=== PATIENT | female | born 1945 | race Caucasian/White ===

== ENCOUNTER 2021-10-31 09:15 | Outpatient (RCR) | payer MEDICARE, OTHER, SELFPAY | END 2021-11-01 07:50 | disposition home or self-care (01) | PROVIDERS: PCP Family Medicine; Visit Provider Family Medicine | DX: M54.2 Cervicalgia (principal); R51.9 Headache, unspecified; M54.9 Dorsalgia, unspecified; Z51.89 Encounter for other specified aftercare | CPT/HCPCS: 97110; 97112; 97140; 97161 ==

== ENCOUNTER 2022-04-07 13:28 | Emergency (ER) | payer MEDICARE, OTHER, SELFPAY ==
[2022-04-07 13:48] VITALS: BP 97/63; PULSE 120; TEMP 36.6; O2SAT 98; BMI 22.7
--- NOTE | 2022-04-07 14:13 | ED.FALL ---
HPI - Fall General Time Seen by Provider: 14:13 Date Seen: 04/07/22 Chief Complaint: Fall/Minor Trauma Stated Complaint: Fell today, hurt L leg Time Seen by Provider: 04/07/22 14:13 Source: patient, family and RN notes reviewed Limitations: no limitations History of Present Illness HPI Narrative: Carola is a very pleasant 77-year-old female with history of left knee replacement status post infection, hardware placed in tibia and femur who comes to the [facility] with the assistance of a friend after falling earlier today. Patient was noted to be getting out of her car down [facility] and when she had taken a few steps slipped. She notes that her left knee was not Ali bent behind her but her foot was to the side. She notes that she did not hit her head but after somebody helped her up she was a bit unsteady. This person also assisted her into a local business and she was able to bear weight but throughout the subsequent 2 hours started developing a limp with increased pain. She notes at home she even had an episode where her whole foot turned numb but since she has been here in the emergency room she has had full sensation. She describes pain in the entire left leg mostly centered around her knee. She also notes that she has discomfort in the outside of her left ankle and to a lesser extent on her hip. She denies any back pain loss of bowel or bladder control. She adamantly denies hitting her head and she has no neck pain. She does note that after this happened she had a moment of double vision and shakiness but that has dissipated, was momentary, and has not returned. Patient describes a left knee surgery 3 years ago which unfortunately had complications. An initial replacement was noted to have infection. She did have the knee removed and was at home in a wheelchair for 3 months until she was able to have surgery again. That is when they added rods into her femur and into her tibia. No problems since that time. Related Data Home Medications Medication Instructions Recorded Confirmed No Known Home Medications 04/07/22 04/07/22 Allergies Allergy/AdvReac Type Severity Reaction Status Date / Time No Known Drug Allergies Allergy Verified 04/07/22 13:53 Review of Systems Status of ROS: Reports: 6 or more systems reviewed and unremarkable except as noted in History and below PFSH PFSH Social History Smoking Status: Former smoker How often do you have a drink containing alcohol: monthly or less How often do you have six or more drinks on one occasion: Never AUDIT-C Alcohol total score: 1 Non-prescribed substance use: denies use Exam Narrative: Exam Narrative: Patient is alert and oriented. Not in any acute distress at this time. GCS 15. Head is atraumatic normocephalic. Neck is supple with no cervical midline tenderness Spontaneous movement of the neck without discomfort. Heart with regular rate and rhythm and lungs are clear to auscultation. Abdomen soft nontender. Upper extremities without injury. Palpation over the left greater trochanter shows some mild discomfort. Palpation over the medial and lateral knee with discomfort. Well-healed surgical start noted over the anterior surface of the knee. The lateral aspect of the malleolus and distal fibula is ecchymotic and slightly add edematous at this time. Patient does have point tenderness noted over the lateral malleolus. Distally sensation and motor is intact. Const: Vital Signs, click to edit/add: Vital Signs - 24 hr 04/07/22 13:48 04/07/22 14:36 04/07/22 17:17 Temperature 97.9 F Pulse Rate [Pulse Oximeter] 120 H 96 93 Respiratory Rate 18 18 Blood Pressure [Ri ght Upper Arm] 97/63 169/57 H 132/70 Pulse Oximetry 98 96 94 Oxygen Delivery Me thod Room Air Documenting provider has reviewed patient's vital signs: yes Course Course Hospital Course: Patient needs x-rays of left lower extremity including hip femur knee tib-fib and ankle. Given the number of these x-rays I have allowed radiology to combine as needed to limit the amount of radiation. Patient states that while she is lying down she feels quite well. Reevaluation(s) Reevaluation #1: Patient returns from Radiology and states that she was successfully able to bear weight while she was getting some of her x-rays. She notes while it does hurt she is able to bear weight. Vital Signs Vital signs: Initial Vital Signs Temperature 97.9 F 04/07/22 13:48 Temperature Source Temporal Artery Scan 04/07/22 13:48 Pulse Rate 120 H 04/07/22 13:48 Blood Pressure 97/63 04/07/22 13:48 Blood Pressure Mean 74 04/07/22 13:48 Blood Pressure Position Sitting 04/07/22 13:48 Pulse Oximetry 98 04/07/22 13:48 Oxygen Delivery Method 04/07/22 13:48 Vital Signs Temperature 97.9 F 04/07/22 13:48 Pulse Rate 120 H 04/07/22 13:48 Blood Pressure 97/63 04/07/22 13:48 Pulse Oximetry 98 04/07/22 13:48 Oxygen Delivery Method 04/07/22 13:48 Temperature 97.9 F 04/07/22 13:48 Pulse Rate 93 04/07/22 17:17 Respiratory Rate 18 04/07/22 17:17 Blood Pressure 132/70 04/07/22 17:17 Pulse Oximetry 94 04/07/22 17:17 Oxygen Delivery Method 04/07/22 13:48 MDM - Fall MDM Narrative Medical decision making narrative: 1. Proximal fibular fracture-at this time I do speak with Ortho in regards to the proximal fibular fracture. My question was if there needed to be a change in treatment which would include knee immobilizer and toe-touch ambulation with a walker. At this time they do suggest that but probably more wheelchair time with toe-touch using a walker up to the bathroom are at the counter. For pain will use Aleve as she tolerates this medication well. For pain not relieved by Aleve will use oxycodone 5 mg tablets 1-2 tabs p.o. q.4-6 hours p.r.n. 20. Via Root[facility]. We did talk about side effects of oxycodone which do include constipation, lightheadedness, as well as addiction. Patient is advised to get up slowly and to consider stool softener. At home her activity will be limited to using the wheelchair and using the walker if needing to be up. I did have concern regarding her being home alone and she states that she did this for 3 months on her own after her knee surgeries. Her friend who is here is very loving and supportive and lives across the road and will also be available for assistance. I would ask patient to return if she is not able to care for herself. 2. [id number] with Dr. Pickett next week for recheck. Note that patient's description of injury, proximal fibular fracture does suggest increased risk of distal fibular or malleolar fracture giving the twisting nature of this injury. While there is ecchymosis there is no evidence of fracture on x-ray. Further examination shows patient moving her ankle with no difficulty while in bed. Imaging Data Right lower extremity x-rays: Attestation: I have reviewed the pertinent imaging results. My impression: Proximal fibular fracture. Do not note any other fractures. Radiologist's impression: here is nondisplaced fracture of the proximal fibula. There is a constrained total knee arthroplasty without obvious hardware failure. There is moderate distal superficial soft tissue swelling. Impression: Nondisplaced fracture of the proximal fibula with moderate distal malleolar soft tissue swelling Pelvis x-ray: My impression: No obvious fractures Radiologist's impression: one: No acute fractures or aggressive bone lesions are identified. Joint: The hip joints are unremarkable. The visualized sacroiliac joints are unremarkable in appearance. The pubic symphysis is normal in appearance. Soft tissue: Unremarkable. The visualized bowel gas pattern of the pelvis is unremarkable in appearance. No radiopaque foreign bodies are seen. IMPRESSION: 1. No acute osseous injuries or abnormalities are noted. Femur x-ray: Attestation: I have reviewed the pertinent imaging results. My impression: No obvious fracture Radiologist's impression: FINDINGS: Bone: No acute fractures or aggressive bone lesions are identified. Joint: A total knee arthroplasty is partially visualized. No significant joint effusion is seen. Soft tissue: Unremarkable. No radiopaque foreign bodies are seen. IMPRESSION: 1. No acute osseous injuries or abnormalities are noted. Discharge Plan Discharge Clinical Impression: Closed fracture of proximal end of fibula Patient Disposition: Home, Self-Care Condition: Unchanged Additional Instructions: For pain: Aleve as needed with food. Oxycodone may be used for pain not relieved by Aleve. This is through our Divergence meds machine. For activity: Suggest using your wheelchair as much as possible. Occasionally you may use the walker to stand up at the counter or to assist yourself into the bathroom. For follow-up: Follow-up with the [facility] next week. You mention that you have seen Dr. Pickett in the past. He can be reached for appointment at [phone]. If you are not doing well at home please return to the emergency room. Ice to areas of discomfort. Best wishes on a speedy recovery Prescriptions: No Action No Known Home Medications Follow Up/Referrals: Leny Olsen DO [Primary Care Provider] - Stand Alone Forms: [employer] Info Instructions
--- NOTE | 2022-04-07 14:21 | CRLHL7_ITS ---
For Patients: As a result of the Cures Act, medical imaging exams and procedure reports are released immediately into your electronic medical record. You may view this report before your referring provider. If you have questions, please contact your health care provider. INDICATION: Fall, pain TECHNIQUE: Femur radiograph 4 views left COMPARISON: None FINDINGS: Bone: No acute fractures or aggressive bone lesions are identified. Joint: A total knee arthroplasty is partially visualized. No significant joint effusion is seen. Soft tissue: Unremarkable. No radiopaque foreign bodies are seen. IMPRESSION: 1. No acute osseous injuries or abnormalities are noted. Dictated by Cheikh Garvey MD @ 04/07/2022 4:10:56 PM Dictated by: Cheikh Garvey MD @ 04/07/2022 16:11:00 (Electronically Signed)
--- NOTE | 2022-04-07 14:21 | CRLHL7_ITS ---
For Patients: As a result of the Cures Act, medical imaging exams and procedure reports are released immediately into your electronic medical record. You may view this report before your referring provider. If you have questions, please contact your health care provider. Indication: Fall, pain Comparison: None available. Technique: AP and lateral views left tibia and fibula were obtained. Findings: There is nondisplaced fracture of the proximal fibula. There is a constrained total knee arthroplasty without obvious hardware failure. There is moderate distal superficial soft tissue swelling. Impression: Nondisplaced fracture of the proximal fibula with moderate distal malleolar soft tissue swelling Dictated by Wilfredo Cervantes MD @ 04/07/2022 4:14:30 PM (Electronically Signed)
--- NOTE | 2022-04-07 14:21 | CRLHL7_ITS ---
For Patients: As a result of the Cures Act, medical imaging exams and procedure reports are released immediately into your electronic medical record. You may view this report before your referring provider. If you have questions, please contact your health care provider. INDICATION: Fall, left hip pain TECHNIQUE: Pelvis radiograph 1 view COMPARISON: None FINDINGS: Bone: No acute fractures or aggressive bone lesions are identified. Joint: The hip joints are unremarkable. The visualized sacroiliac joints are unremarkable in appearance. The pubic symphysis is normal in appearance. Soft tissue: Unremarkable. The visualized bowel gas pattern of the pelvis is unremarkable in appearance. No radiopaque foreign bodies are seen. IMPRESSION: 1. No acute osseous injuries or abnormalities are noted. Dictated by: Cheikh Garvey MD @ 04/07/2022 16:13:32 (Electronically Signed)
[2022-04-07 14:36] VITALS: BP 169/57; PULSE 96; RESP 18; O2SAT 96
--- NOTE | 2022-04-07 17:03 | ED.NURSE ---
Ortho speaking with
[2022-04-07 17:17] VITALS: BP 132/70; PULSE 93; RESP 18; O2SAT 94
== END 2022-04-07 17:41 | disposition home or self-care (01) ==
PROVIDERS: Emergency Provider Family Medicine; PCP Family Medicine
DX: S82.402A Unspecified fracture of shaft of left fibula, initial encounter for closed fracture (principal); W01.0XXA Fall on same level from slipping, tripping and stumbling without subsequent striking against object, initial encounter
CPT/HCPCS: 72170; 73552; 73590; 99284; 99285

== ENCOUNTER 2022-04-23 07:04 | Day surgery (SDC) | payer MEDICARE, OTHER, SELFPAY ==
[2022-04-23] VITALS (15 sets, daily range): BP systolic 113–139; BP diastolic 47–98; PULSE 63–79; RESP 16; TEMP 36.1–36.7; O2SAT 93–100; BMI 22.6
[2022-04-23] MEDS: LACTATED RINGERS 1000 ML 1,000 ML 100 ML IV (07:25)
[2022-04-23] MEDS: SODIUM CHLORIDE 0.9 % (FLUSH) 10 ML SYRINGE IVF (07:42)
[2022-04-23] MEDS: MIDAZOLAM HCL 1 MG/ML inj IVP (07:56)
[2022-04-23] MEDS: fentaNYL 100 MCG/2 ML inj IVP (07:56)
--- NOTE | 2022-04-23 08:02 | SUR.PREOP ---
TIME?OUT:?0755 PT/RN/MDA?VERIFICATION?OF?SURGICAL?SITE left ankle,?PROCEDURE nerve block,?AND?CONSENT OBTAINED?PRIOR?TO?INVASIVE?PROCEDURE.
--- NOTE | 2022-04-23 08:17 | P.NB_ITS ---
Nerve Block Nerve Block Time Seen by Provider: 07:55 Date Seen: 04/23/22 Type of block requested by surgeon for post-operative analgesia: popliteal Side: left Time out performed: Yes Verification of patient name: Yes Verification of date of : Yes Site marking: site marked Name of person performing procedure: Andrey Continuous monitoring Was continuous monitoring of O2 sat, B/P, cardiac exercise physiologist, recorded every 15 minutes?: Yes Procedure Checklist: sterile prep, needles and gloves Ultrasound guided. Images saved: Yes Medications given in 5ml increments after negative aspiration: Ropivicaine %: 0.5 mL: 20 Needle gauge: 22 Patient tolerated procedure well: Yes Additional comments: Needle noted adjacent to nerve Block Charges Block Charge (with Pro Fee): Sciatic Nerve Use of Ultrasound Machine for Block: Yes- US Guidance/pain block
--- NOTE | 2022-04-23 08:17 | W.ANESCHARGE ---
Anesthesia Charges Start Date/Time Anesthesia Start Date: 04/23/22 Anesthesia Start Time: 08:23 Stop Date/Time Anesthesia Stop Date: 04/23/22 Anesthesia Stop Time: 09:27 Summary Emergency: No Extremes of Age: Over 71-CPT 32352
--- NOTE | 2022-04-23 08:18 | P.NB_ITS ---
Nerve Block Nerve Block Time Seen by Provider: 07:55 Date Seen: 04/23/22 Type of block requested by surgeon for post-operative analgesia: adductor canal Side: left Time out performed: Yes Verification of patient name: Yes Verification of date of : Yes Site marking: site marked Name of person performing procedure: Andrey Continuous monitoring Was continuous monitoring of O2 sat, B/P, behavioral health case manager, recorded every 15 minutes?: Yes Procedure Checklist: sterile prep, needles and gloves Ultrasound guided. Images saved: Yes Medications given in 5ml increments after negative aspiration: Ropivicaine %: 0.5 mL: 20 Needle gauge: 20 Patient tolerated procedure well: Yes Additional comments: Needle noted adjacent to nerve Block Charges Block Charge (with Pro Fee): Femoral Nerve Use of Ultrasound Machine for Block: Yes- US Guidance/pain block
--- NOTE | 2022-04-23 08:30 | CRLHL7_ITS ---
For Patients: As a result of the Cures Act, medical imaging exams and procedure reports are released immediately into your electronic medical record. You may view this report before your referring provider. If you have questions, please contact your health care provider. Indication: ORIF Left Ankle Technique: One fluoroscopic image of the left ankle. Fluoroscopic time 15.5 seconds. IMPRESSION: Fluoroscopic guidance for syndesmotic fixation of the distal tibia/fibula. Dictated by Jean Reaves MD @ 04/23/2022 10:55:53 AM (Electronically Signed)
[2022-04-23] MEDS: CEFAZOLIN 2 GM in 0.9 % SODIUM CHLORIDE Mini-bag 100 ML IVPB (08:31)
--- NOTE | 2022-04-23 09:06 | P.ORPRC_ITS ---
Procedure Note Date of procedure: 04/23/22 Procedure: PREOPERATIVE DIAGNOSES: 1. Left ankle Maisonneuve fracture, closed, acute with syndesmosis disruption POSTOPERATIVE DIAGNOSES: 1. Left ankle Maisonneuve fracture, closed, acute with syndesmosis disruption NAME OF OPERATION: 1. Left ankle syndesmosis ORIF/stabilization 2. 68739 - intraoperative fluoroscopy up to 1 hour. SURGEON: Sawyer Reyes MD LOOSE HAND PACKER: Cruz PERES; Of note, an store assistant was critical for this case to aide in patient positioning, leg manipulation, tissue retraction, closure, & splinting. ANESTHESIA: Spinal plus regional block EBL: Less than 5 mL IMPLANTS: Arthrex 2 hole side plate with 2 knotless tight rope devices (All titanium) TOURNIQUET: 20 minutes at 250 torr INDICATIONS: The patient is a pleasant 77-year-old female who sustained a left ankle injury in the recent past with difficulty bearing weight. Workup included xrays which revealed a maisonneuve fracture. Given these findings, surgery was recommended to stablize the syndesmosis. FINDINGS: Closed, maisonneuve fracture with medial clear space widening upon stress. PROCEDURE: Following a thorough discussion of risks, benefits, and alternatives, consent was obtained and the left ankle was marked. The patient was brought to the operating room and placed supine on the operating table. Induction of anesthesia was undertaken. Appropriate time out was performed identifying proper patient, site and procedure. 1 gram of iv Ancef was administered within 1 hour of incision preoperatively. The left lower extremity was prepped and draped in the appropriate sterile fashion using ChloraPrep. The limb was exsanguinated and the tourniquet inflated. A longitudinal incision was made along the distal lateral aspect of the fibula after confirming on C-arm fluoroscopic imaging the height of the desired plate location. Sharp incision through skin and blunt dissection through subcutaneous tissue allowed us to identify the periosteum. This was elevated subperiosteally. A 2 hole side plate was applied and 2 knotless tight rope devices were utilized for syndesmosis stabilization. These were placed in a divergent path in the AP direction. The guide pin was placed, confirmed on C-arm fluoroscopic imaging, and subsequently drilled and the knotless tight ropes past. All hardware was titanium. Excellent stabilization of the syndesmosis achieved. Stress radiographs confirmed syndesmosis stabilization. At this stage, the wound was thoroughly irrigated with normal saline. Closure was performed with 3-0 / 4-0 Vicryl and monocryl, respectively for subcutaneous and subcuticular closure. Dressings were applied and a sugar-tong splint was applied. The patient was awoken from anesthesia and transferred to the PACU in stable condition. PLAN: 1. Elevate operative extremity. 2. Encouraged ice. 3. Percocet for pain as needed. 4. Follow up with PA visit in 1-2 weeks for wound check and splint removal. Transition to CAM boot. Advance weight-bearing slowly over the next 1-2 weeks as tolerated 5. Toe-touch weight-bearing operative lower extremity currently until 1st postop visit.
--- NOTE | 2022-04-23 09:25 | W.ANESCHARGE ---
Anesthesia Charges Start Date/Time Anesthesia Start Date: 04/23/22 Anesthesia Start Time: 08:23 Stop Date/Time Anesthesia Stop Date: 04/23/22 Anesthesia Stop Time: 09:27 Summary Emergency: No Extremes of Age: Over 71-CPT 48519
== END 2022-04-23 10:56 | disposition home or self-care (01) ==
PROVIDERS: PCP Family Medicine; Visit Provider Orthopaedic Surgery Sports Medicine
PROC: (CPT 27829; principal; 2022-04-23 08:30)
DX: S82.865A Nondisplaced Maisonneuve's fracture of left leg, initial encounter for closed fracture (principal); S93.432A Sprain of tibiofibular ligament of left ankle, initial encounter
CPT/HCPCS: 27829; 27784; 1480; 64445; 64447; 73600; 76000; 76942; 99100; C1713; J0690; J2250; J2400; J2405; J2704; J2795; J3010; J7120

== ENCOUNTER 2022-11-19 08:45 | Outpatient (RCR) | payer MEDICARE, OTHER, SELFPAY | END 2023-02-11 09:12 | disposition home or self-care (01) | PROVIDERS: PCP Family Medicine; Visit Provider Nurse Practitioner Family | DX: M48.02 Spinal stenosis, cervical region (principal); Z51.89 Encounter for other specified aftercare | CPT/HCPCS: 97110; 97140; 97161 ==